=== PATIENT | male | born 1955 | race Caucasian/White ===

== ENCOUNTER 2017-10-10 20:20 | Emergency (ER) | payer MEDICAID ==
[2017-10-10 20:55] VITALS: BP 160/80
[2017-10-10] MEDS ORDERED: Ketorolac 60 MG/2 ML SDV IM ONE (21:25)
--- NOTE | 2017-10-10 21:33 | EDM.PDOC ---
ED HPI GENERAL MEDICAL PROBLEM - General Chief Complaint: Respiratory Problem Stated Complaint: FELL OFF TRACTOR Time Seen by Provider: 10/10/17 21:20 Source of Information: Reports: Patient, Old Records, RN History Limitations: Reports: No Limitations - History of Present Illness INITIAL COMMENTS - FREE TEXT/NARRATIVE: 61 yo male presents with L rib pain after falling on some stairs and impacted that side of his chest on a tractor. It hurts now to breath or laugh. Injury about 1630h today. No self tx. No SOB. No other injuries. Onset: Today Onset Date: 10/10/17 Onset Time: 16:30 Duration: Hour(s):, Constant Location: Reports: Chest Quality: Reports: Sharp, Stabbing Severity: Moderate Improves with: Reports: Rest Worsens with: Reports: Movement (or deep breathing) Context: Reports: Trauma Associated Symptoms: Reports: No Other Symptoms Treatments [employer]ITER: Reports: Other (see below) (none) left rib Pain Score (Numeric/FACES): 5 - Related Data Allergies Allergy/AdvReac Type Severity Reaction Status Date / Time morphine Allergy Itching Verified 10/10/17 21:00 Home Meds: Home Meds Aspirin [Adult Low Dose Aspirin EC] 81 mg PO DAILY 07/18/13 [History] Cyanocobalamin (Vitamin B-12) [Vitamin B-12] 1,000 mcg PO DAILY 07/18/13 [ History] Lisinopril [Prinivil] 5 mg PO DAILY 07/18/13 [History] Simvastatin [Zocor] 40 mg PO BEDTIME 07/18/13 [History] glipiZIDE [Glucotrol XL] 10 mg PO BID 07/18/13 [History] metFORMIN HCl [Metformin HCl ER] 1,000 mg PO BID 07/18/13 [History] Sildenafil [Viagra] 50 mg PO ASDIRECTED PRN 04/05/15 [History] Past Medical History Cardiovascular History: Reports: Blood Clots/VTE/DVT, CAD, High Cholesterol, Hypertension, [place], Stents Respiratory History: Reports: Other (See Below) Other Respiratory History: sarcoid- right lung Musculoskeletal History: Reports: Back Pain, Chronic Endocrine/Metabolic History: Reports: Diabetes, Type II Hematologic History: Reports: B12 Deficiency Oncologic (Cancer) History: Reports: Basal Cell Carcinoma Dermatologic History: Reports: Other (See Below) Other Dermatologic History: lumps left face and arm - Past Surgical History HEENT Surgical History: Reports: Other (See Below) Other HEENT Surgeries/Procedures: parotiod gland surgery Cardiovascular Surgical History: Reports: Coronary Artery Stent Respiratory Surgical History: Reports: Lung Biopsies Musculoskeletal Surgical History: Reports: Arthroscopic Knee Social & Family History - Tobacco Use Smoking Status *Q: Never Smoker - Caffeine Use Caffeine Use: Reports: Coffee - Recreational Drug Use Recreational Drug Use: No ED ROS GENERAL - Review of Systems Review Of Systems: See Below Constitutional: Reports: No Symptoms HEENT: Reports: No Symptoms Respiratory: Reports: Pleuritic Chest Pain Cardiovascular: Reports: No Symptoms GI/Abdominal: Reports: No Symptoms : Reports: No Symptoms Musculoskeletal: Reports: Other (chest wall pain on left.) Skin: Reports: No Symptoms Neurological: Reports: No Symptoms ED EXAM, GENERAL - Physical Exam Exam: See Below Exam Limited By: No Limitations General Appearance: Alert, WD/WN, No Apparent Distress Eye Exam: Bilateral Eye: Normal Inspection Ears: Normal External Exam, Normal Canal, Hearing Grossly Normal Ear Exam: Bilateral Ear: Auricle Normal, Canal Normal Nose: Normal Inspection, Normal Mucosa, No Blood Throat/Mouth: Normal Inspection, Normal Lips, Normal Oropharynx, Normal Voice, No Airway Compromise Head: Atraumatic, Normocephalic Neck: Normal Inspection, Supple, Non-Tender Respiratory/Chest: No Respiratory Distress, Lungs Clear, Normal Breath Sounds, No Accessory Muscle Use, Other (L chest wall tender without crepitus.). No: Chest Non-Tender Cardiovascular: Regular Rate, Rhythm GI/Abdominal: Normal Bowel Sounds, Soft, Non-Tender, No Distention Back Exam: Normal Inspection. No: CVA Tenderness (R), CVA Tenderness (L) Extremities: Normal Inspection, Normal Range of Motion, Non-Tender, No Pedal Edema Neurological: Alert, Oriented, CN II-XII Intact, Normal Cognition, No Motor/ Sensory Deficits Psychiatric: Normal Affect, Normal Mood Skin Exam: Warm, Dry, Intact, Normal Color, No Rash Course - Vital Signs Last Recorded V/S: Last Vital Signs Temp 36.6 C 10/10/17 21:10 Pulse 104 H 10/10/17 21:10 Resp 18 10/10/17 21:10 BP 160/80 H 10/10/17 21:10 Pulse Ox 98 10/10/17 21:10 - Orders/Labs/Meds Orders: Active Orders 24 hr Category Date Time Status Chest 2V [CR] Stat Exams 10/10/17 21:25 Ordered Meds: Medications Discontinued Medications Generic Name Dose Route Start Last Admin Trade Name Ifrah PRN Reason Stop Dose Admin Ketorolac Tromethamine 60 mg 10/10/17 21:25 10/10/17 21:30 Toradol IM 10/10/17 21:26 60 mg ONETIME ONE Administration - Radiology Interpretation Free Text/Narrative:: CXR-At least 2 ribs fx's on left. Departure - Departure Time of Disposition: 21:55 Disposition: Home, Self-Care 01 Condition: Fair Clinical Impression: Ribs, multiple fractures Qualifiers: Encounter type: initial encounter Fracture type: closed Laterality: left Qualified Code(s): S22.42XA - Multiple fractures of ribs, left side, initial encounter for closed fracture - Discharge Information Referrals: Reji Ahmadi MD [Primary Care Provider] - Forms: ED Department Discharge - My Orders Last 24 Hours: My Active Orders 10/10/17 21:25 Chest 2V [CR] Stat - Assessment/Plan Last 24 Hours: My Active Orders 10/10/17 21:25 Chest 2V [CR] Stat
--- NOTE | 2017-10-11 08:57 | CR ---
CHEST: 2 view CLINICAL HISTORY:Fall, chest pain COMPARISON:CT 05/09/2017 FINDINGS: There is a slightly displaced fracture of the left seventh rib.. There is no pleural effus ion or pneumothorax. There are some scattered faint nodularity which is seen on prior CTs of the ches t and is likely related to patient's history of sarcoidosis IMPRESSION: Slightly displaced left seventh rib fracture No acute cardiopulmonary process Faint scattered nodularity has been described on multiple prior CTs
== END 2017-10-10 22:02 | disposition home or self-care (01) ==
LOC: JP.ED 20:20
DX: S22.42XA Multiple fractures of ribs, left side, initial encounter for closed fracture (principal); E78.00 Pure hypercholesterolemia, unspecified; I10 Essential (primary) hypertension; I25.2 Old myocardial infarction; E11.9 Type 2 diabetes mellitus without complications; Z88.5 Allergy status to narcotic agent; Z79.82 Long term (current) use of aspirin; Z79.899 Other long term (current) drug therapy; W10.9XXA Fall (on) (from) unspecified stairs and steps, initial encounter; Y92.818 Other transport vehicle as the place of occurrence of the external cause; Z79.84 Long term (current) use of oral hypoglycemic drugs
CPT/HCPCS: 71046; 96372; 99284; J1885; 99283

== ENCOUNTER 2019-06-14 09:20 | Emergency (ER) | payer MEDICAID ==
--- NOTE | 2019-06-14 09:30 | EDM.PDOC ---
ED HPI GENERAL MEDICAL PROBLEM - General Chief Complaint: Lower Extremity Injury/Pain Stated Complaint: R FOOT SORE-ON THE 4TH TOE Time Seen by Provider: 06/14/19 09:28 Source of Information: Reports: Patient History Limitations: Reports: No Limitations - History of Present Illness INITIAL COMMENTS - FREE TEXT/NARRATIVE: 63 years old male patient presented to the ER for chronic right fourth toe diabetic ulcer. Patient has a follow-up with his boiler testing technician Dr. Bellamy tomorrow. He saw him before and he wasn't antibiotic for 48 days. Finished 1 week ago. Patient was also seen at my clinic for this. His boiler testing technician recommended amputation however my clinic advised him not to do so. Patient is here today for dressing change of his toe and reevaluation of his toe. Stated it 's slightly worse today. Denies any fever. Denies any redness. Denies any new trauma or injury. - Related Data Allergies Allergy/AdvReac Type Severity Reaction Status Date / Time morphine Allergy Itching Verified 06/14/19 09:36 Home Meds: Home Meds Aspirin [Adult Low Dose Aspirin EC] 81 mg PO DAILY 07/18/13 [History] Cyanocobalamin (Vitamin B-12) [Vitamin B-12] 1,000 mcg PO DAILY 07/18/13 [ History] Simvastatin [Zocor] 40 mg PO BEDTIME 07/18/13 [History] glipiZIDE [Glucotrol XL] 10 mg PO BID 07/18/13 [History] lisinopriL [Prinivil] 5 mg PO DAILY 07/18/13 [History] metFORMIN HCl [Metformin HCl ER] 1,000 mg PO BID 07/18/13 [History] Sildenafil [Viagra] 50 mg PO ASDIRECTED PRN 04/05/15 [History] Past Medical History Cardiovascular History: Reports: Blood Clots/VTE/DVT, CAD, High Cholesterol, Hypertension, [place], Stents Respiratory History: Reports: Other (See Below) Other Respiratory History: sarcoid- right lung Musculoskeletal History: Reports: Back Pain, Chronic Endocrine/Metabolic History: Reports: Diabetes, Type II Hematologic History: Reports: B12 Deficiency Oncologic (Cancer) History: Reports: Basal Cell Carcinoma Dermatologic History: Reports: Other (See Below) Other Dermatologic History: lumps left face and arm - Past Surgical History HEENT Surgical History: Reports: Other (See Below) Other HEENT Surgeries/Procedures: parotiod gland surgery Cardiovascular Surgical History: Reports: Coronary Artery Stent Respiratory Surgical History: Reports: Lung Biopsies Musculoskeletal Surgical History: Reports: Arthroscopic Knee Social & Family History - Caffeine Use Caffeine Use: Reports: Coffee Review of Systems - Review of Systems Review Of Systems: Comprehensive ROS is negative, except as noted in HPI. ED EXAM, GENERAL - Physical Exam Exam: See Below Exam Limited By: No Limitations General Appearance: Alert, WD/WN, No Apparent Distress Ears: Normal External Exam, Normal Canal, Hearing Grossly Normal, Normal TMs Ear Exam: Bilateral Ear: Auricle Normal, Canal Normal, TM normal Nose: Normal Inspection, Normal Mucosa, No Blood Throat/Mouth: Normal Inspection, Normal Lips, Normal Teeth, Normal Gums, Normal Oropharynx, Normal Voice, No Airway Compromise Head: Atraumatic, Normocephalic Neck: Normal Inspection, Supple, Non-Tender, Full Range of Motion Respiratory/Chest: No Respiratory Distress, Lungs Clear, Normal Breath Sounds, No Accessory Muscle Use, Chest Non-Tender Cardiovascular: Normal Peripheral Pulses, Regular Rate, Rhythm, No Edema, No Gallop, No JVD, No Murmur, No Rub GI/Abdominal: Normal Bowel Sounds, Soft, Non-Tender, No Organomegaly, No Distention, No Abnormal Bruit, No Mass (Male) Exam: Circumcised Back Exam: Normal Inspection, Full Range of Motion, NT Extremities: Normal Inspection, Normal Range of Motion, Non-Tender, No Pedal Edema, Normal Capillary Refill, Other (Chronic ulcer of the lateral side of the right fourth toe. No erythema or swelling or tenderness. CMS intact. Minimal discharge) Neurological: Alert, Oriented, CN II-XII Intact, Normal Cognition, Normal Gait, Normal Reflexes, No Motor/Sensory Deficits Psychiatric: Normal Affect, Normal Mood Skin Exam: Warm, Dry, Intact, Normal Color, No Rash Lymphatic: No Adenopathy Course - Vital Signs Last Recorded V/S: Last Vital Signs Temp 35.9 C L 06/14/19 09:28 Pulse 80 06/14/19 09:28 Resp 18 06/14/19 09:28 BP 145/86 H 06/14/19 09:28 Pulse Ox 98 06/14/19 09:28 - Orders/Labs/Meds Orders: Active Orders 24 hr Category Date Time Status cefTRIAXone [Rocephin] Med 06/14/19 09:42 Once 1 gm IM ONETIME ONE Medication Orders Ceftriaxone Sodium (Rocephin) 1 gm IM ONETIME ONE Stop: 06/14/19 09:43 Meds: Medications Generic Name Dose Route Start Last Admin Trade Name Ifrah PRN Reason Stop Dose Admin Ceftriaxone Sodium 1 gm 06/14/19 09:42 Rocephin IM 06/14/19 09:43 ONETIME ONE - Re-Assessments/Exams Free Text/Narrative Re-Assessment/Exam: 06/14/19 09:48 Patient was seen and examined shortly after arrival. Stable. Given 1 g IM Rocephin and dressing changed and advised to keep his appointment with his boiler testing technician Dr. Bellamy tomorrow. Advised to come back for any concern or any worsening symptom. Patient agrees with the plan. Stable for discharge. Departure - Departure Time of Disposition: 09:42 Disposition: Home, Self-Care 01 Condition: Good Clinical Impression: Diabetic toe ulcer - Discharge Information Instructions: Diabetes Mellitus and Foot Care Referrals: PCP,None [Primary Care Provider] - Forms: ED Department Discharge Additional Instructions: Keep your appointment with boiler testing technician Dr. Bellamy tomorrow Come back for any concern or any worsening symptom Sepsis Event Note - Focused Exam Vital Signs: Vital Signs Temp Pulse Resp BP Pulse Ox 06/14/19 09:28 35.9 C L 80 18 145/86 H 98 Date Exam was Performed: 06/14/19 Time Exam was Performed: 09:42 - My Orders Last 24 Hours: My Active Orders 06/14/19 09:42 cefTRIAXone [Rocephin] 1 gm IM ONETIME ONE - Assessment/Plan Last 24 Hours: My Active Orders 06/14/19 09:42 cefTRIAXone [Rocephin] 1 gm IM ONETIME ONE Plan: Keep your appointment with boiler testing technician Dr. Bellamy tomorrow Come back for any concern or any worsening symptom
[2019-06-14 09:34] VITALS: BP 145/86; PULSE 80
[2019-06-14] MEDS ORDERED: cefTRIAXone 1 GM Vial IM ONE (09:42)
== END 2019-06-14 10:18 | disposition home or self-care (01) ==
LOC: JP.ED 09:20
DX: E11.621 Type 2 diabetes mellitus with foot ulcer (principal); L97.519 Non-pressure chronic ulcer of other part of right foot with unspecified severity; I10 Essential (primary) hypertension; I25.10 Atherosclerotic heart disease of native coronary artery without angina pectoris; I25.2 Old myocardial infarction; Z79.84 Long term (current) use of oral hypoglycemic drugs; Z79.82 Long term (current) use of aspirin; Z79.899 Other long term (current) drug therapy; Z85.828 Personal history of other malignant neoplasm of skin; Z88.5 Allergy status to narcotic agent
CPT/HCPCS: 96372; 99282; J0696; J2001

== ENCOUNTER 2019-08-15 20:16 | Emergency (ER) | payer MEDICAID ==
[2019-08-15 21:24] VITALS: BP 115/64; PULSE 113
--- NOTE | 2019-08-15 21:54 | EDM.PDOC ---
ED HPI GENERAL MEDICAL PROBLEM - General Chief Complaint: Fever Stated Complaint: RT FOOT, LEFT RIB PAIN Time Seen by Provider: 08/15/19 21:10 Source of Information: Reports: Patient, Family History Limitations: Reports: No Limitations - History of Present Illness INITIAL COMMENTS - FREE TEXT/NARRATIVE: 63-year-old diabetic, has peripheral neuropathy and a history of a toe amputation on the right foot within the last year. Over the past several days he has had erythema and warmth of the right foot and increased tenderness. He also has some discomfort on the anterior aspect of the left chest wall after reaching forward 2 days ago. He is also had some intermittent low-grade fevers and generalized malaise. He admits he has not taken his medications consistently and is medically noncompliant. Podiatry fitted him with a boot last week but he does not want to wear it because it does not fit right. Onset: Gradual (Worsening redness and pain in his foot for the past 3 days) Associated Symptoms: Reports: Fever/Chills, Malaise, Other (Left anterior chest wall pain). Denies: Cough, Nausea/Vomiting, Shortness of Breath, Weakness - Related Data Allergies Allergy/AdvReac Type Severity Reaction Status Date / Time morphine Allergy Itching Verified 08/15/19 20:44 Home Meds: Home Meds Aspirin [Adult Low Dose Aspirin EC] 81 mg PO DAILY 07/18/13 [History] Cyanocobalamin (Vitamin B-12) [Vitamin B-12] 1,000 mcg PO DAILY 07/18/13 [ History] Simvastatin [Zocor] 40 mg PO BEDTIME 07/18/13 [History] glipiZIDE [Glucotrol XL] 10 mg PO BID 07/18/13 [History] lisinopriL [Prinivil] 10 mg PO DAILY 07/18/13 [History] metFORMIN HCl [Metformin HCl ER] 1,000 mg PO BID 07/18/13 [History] SitaGLIPtin [Januvia] 100 mg PO DAILY 06/14/19 [History] Past Medical History Cardiovascular History: Reports: Blood Clots/VTE/DVT, CAD, High Cholesterol, Hypertension, [place], Stents Respiratory History: Reports: Other (See Below) Other Respiratory History: sarcoid- right lung Musculoskeletal History: Reports: Back Pain, Chronic Endocrine/Metabolic History: Reports: Diabetes, Type II Hematologic History: Reports: B12 Deficiency Oncologic (Cancer) History: Reports: Basal Cell Carcinoma Dermatologic History: Reports: Other (See Below) Other Dermatologic History: lumps left face and arm - Past Surgical History HEENT Surgical History: Reports: Other (See Below) Other HEENT Surgeries/Procedures: parotiod gland surgery Cardiovascular Surgical History: Reports: Coronary Artery Stent Respiratory Surgical History: Reports: Lung Biopsies Musculoskeletal Surgical History: Reports: Arthroscopic Knee, Other (See Below) Other Musculoskeletal Surgeries/Procedures:: right toe amputation Social & Family History - Tobacco Use Smoking Status *Q: Never Smoker - Caffeine Use Caffeine Use: Reports: Coffee ED ROS GENERAL - Review of Systems Review Of Systems: See Below Constitutional: Reports: Fever, Chills, Malaise HEENT: Reports: No Symptoms Respiratory: Reports: Pleuritic Chest Pain. Denies: Shortness of Breath Cardiovascular: Reports: Chest Pain. Denies: Palpitations GI/Abdominal: Denies: Abdominal Pain, Nausea, Vomiting : Reports: No Symptoms Musculoskeletal: Reports: Foot Pain (Right foot pain) Skin: Reports: Erythema (Erythema has developed on the top and medial aspect of the right foot) Neurological: Reports: Paresthesia ED EXAM, GENERAL - Physical Exam Exam: See Below (Significant peripheral neuropathy) Exam Limited By: No Limitations General Appearance: Alert, No Apparent Distress Eye Exam: Bilateral Eye: Normal Inspection Respiratory/Chest: No Respiratory Distress, Lungs Clear, Other (I can reproduce some chest wall tenderness to palpation over the anterior aspect of the costochondral junction on the left side near the inferior aspect of the rib cage. There is no crepitus or bruising.) Cardiovascular: Regular Rate, Rhythm GI/Abdominal: Normal Bowel Sounds, Soft, Non-Tender Extremities: Other (The right foot has a surgically removed fourth toe, the incision looks excellent. There is erythema and warmth extending from the base of the toes over the top of the foot around to the medial aspect of the foot. No open wounds or ischemic discoloration.) Course - Vital Signs Last Recorded V/S: Last Vital Signs Temp 100.9 F H 08/15/19 20:59 Pulse 113 H 08/15/19 21:23 Resp 14 08/15/19 20:59 BP 115/64 08/15/19 21:23 Pulse Ox 97 08/15/19 21:23 - Orders/Labs/Meds Orders: Active Orders 24 hr Category Date Time Status Chest 2V [CR] Routine Exams 08/15/19 21:20 Taken - Re-Assessments/Exams Free Text/Narrative Re-Assessment/Exam: 08/15/19 23:01 A 2 view chest x-ray was obtained and showed irregularities of the seventh and eighth rib which could be chronic. No infiltrates. Patient will be started on 875 mg of Augmentin twice daily for a full 10 days and I recommended him rechecking with podiatry in 2 to 3 days. He can return sooner if worsening despite treatment. Departure - Departure Time of Disposition: 22:43 Disposition: Home, Self-Care 01 Clinical Impression: Cellulitis of right foot, Anterior chest wall pain - Discharge Information Instructions: Cellulitis, Adult Referrals: Reji Ahmadi MD [Primary Care Provider] - Forms: ED Department Discharge Care Plan Goals: Continue your current medications as prescribed, and take Augmentin for a full 10 days. Consider rechecking with Dr. Sorto on Saturday, especially if you do not feel you are improving satisfactorily. Sepsis Event Note - Evaluation Sepsis Screening Result: Possible Severe Sepsis Risk - Focused Exam Vital Signs: Vital Signs Temp Pulse Resp BP Pulse Ox 08/15/19 21:23 113 H 115/64 97 08/15/19 20:59 100.9 F H 108 H 14 96/46 L 97 Date Exam was Performed: 08/15/19 Time Exam was Performed: 22:58 - My Orders Last 24 Hours: My Active Orders 08/15/19 21:20 Chest 2V [CR] Routine - Assessment/Plan Last 24 Hours: My Active Orders 08/15/19 21:20 Chest 2V [CR] Routine
--- NOTE | 2019-08-17 10:21 | CR ---
CHEST: 2 view CLINICAL HISTORY:Dyspnea COMPARISON:2018 FINDINGS: The heart size, pulmonary vascularity and hilar structures are normal. No infiltrate effusion or pneumothorax is seen. 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 IMPRESSION: No acute cardiopulmonary process.
== END 2019-08-15 22:43 | disposition home or self-care (01) ==
LOC: JP.ED 20:16
DX: L03.115 Cellulitis of right lower limb (principal); R07.89 Other chest pain; I10 Essential (primary) hypertension; E78.00 Pure hypercholesterolemia, unspecified; I25.10 Atherosclerotic heart disease of native coronary artery without angina pectoris; E11.42 Type 2 diabetes mellitus with diabetic polyneuropathy; I25.2 Old myocardial infarction; Z88.5 Allergy status to narcotic agent; Z79.82 Long term (current) use of aspirin; Z79.899 Other long term (current) drug therapy; Z79.84 Long term (current) use of oral hypoglycemic drugs; Z89.421 Acquired absence of other right toe(s); Z95.5 Presence of coronary angioplasty implant and graft
CPT/HCPCS: 71046; 71046-26; 99284-25

== ENCOUNTER 2020-05-19 09:50 | Emergency (ER) | payer MEDICAID ==
--- NOTE | 2020-05-19 10:38 | EDM.PDOC ---
ED HPI GENERAL MEDICAL PROBLEM - General Chief Complaint: Neurological Problem Stated Complaint: FELL DOWN STAIRS SAT, KEEPS FALLING Time Seen by Provider: 05/19/20 10:15 Source of Information: Reports: Patient, Family, Old Records, RN History Limitations: Reports: No Limitations - History of Present Illness INITIAL COMMENTS - FREE TEXT/NARRATIVE: 64 yo male with diabetic neuropathy was drinking on Saturday and fell down some stairs. Since then he has been falling more and seems forgetful. Has some pain to the L groin area with leg movement. Ribs hurt more bilaterally. The daughter became aware of what has been going on today and called Dr. Ahmadi who directed them to come to the ER. Denies BERTRAND or vomiting. Onset: Sudden Onset Date: 05/14/20 Duration: Day(s):, Waxing/Waning Location: Reports: Head, Chest, Pelvis Quality: Reports: Ache Severity: Mild Improves with: Reports: None Worsens with: Reports: Movement (L pelvis worse with active leg movement) Context: Reports: Trauma Associated Symptoms: Reports: Other (losing track of time). Denies: Headaches Treatments PURCHASING SUPERVISOR: Reports: Other (see below) (none) - Related Data Allergies Allergy/AdvReac Type Severity Reaction Status Date / Time morphine Allergy Itching Verified 05/19/20 10:10 Home Meds: Home Meds Aspirin [Adult Low Dose Aspirin EC] 81 mg PO DAILY 07/18/13 [History] Cyanocobalamin (Vitamin B-12) [Vitamin B-12] 1,000 mcg PO DAILY 07/18/13 [History] Simvastatin [Zocor] 40 mg PO BEDTIME 07/18/13 [History] glipiZIDE [Glucotrol XL] 10 mg PO BID 07/18/13 [History] lisinopriL [Prinivil] 10 mg PO DAILY 07/18/13 [History] metFORMIN HCl [Metformin HCl ER] 1,000 mg PO BID 07/18/13 [History] SitaGLIPtin [Januvia] 100 mg PO DAILY 06/14/19 [History] Gabapentin [Neurontin] 300 mg PO BID 05/19/20 [History] Past Medical History HEENT History: Reports: Impaired Vision Cardiovascular History: Reports: Blood Clots/VTE/DVT, CAD, High Cholesterol, Hypertension, ND, Stents Respiratory History: Reports: Other (See Below) Other Respiratory History: sarcoid- right lung Musculoskeletal History: Reports: Back Pain, Chronic Endocrine/Metabolic History: Reports: Diabetes, Type II, Obesity/BMI 30+ Hematologic History: Reports: B12 Deficiency Oncologic (Cancer) History: Reports: Basal Cell Carcinoma Dermatologic History: Reports: Other (See Below) Other Dermatologic History: lumps left face and arm - Infectious Disease History Infectious Disease History: Reports: Chicken Pox, Mumps - Past Surgical History Head Surgeries/Procedures: Reports: None HEENT Surgical History: Reports: Other (See Below) Other HEENT Surgeries/Procedures: parotiod gland surgery Cardiovascular Surgical History: Reports: Coronary Artery Stent Respiratory Surgical History: Reports: Lung Biopsies Endocrine Surgical History: Reports: None Musculoskeletal Surgical History: Reports: Arthroscopic Knee, Other (See Below) Other Musculoskeletal Surgeries/Procedures:: right toe amputation , tip of right middle finger amputated Oncologic Surgical History: Reports: None Social & Family History - Tobacco Use Tobacco Use Status *Q: Never Tobacco User Second Hand Smoke Exposure: No - Caffeine Use Caffeine Use: Reports: Coffee - Recreational Drug Use Recreational Drug Use: No ED ROS GENERAL - Review of Systems Review Of Systems: See Below Constitutional: Reports: No Symptoms HEENT: Reports: No Symptoms Respiratory: Reports: Pleuritic Chest Pain (at times with deep breathing). Denies: Shortness of Breath, Cough, Sputum, Hemoptysis Cardiovascular: Reports: No Symptoms Endocrine: Reports: No Symptoms GI/Abdominal: Reports: No Symptoms : Reports: No Symptoms Musculoskeletal: Reports: Leg Pain (R and L at times) Skin: Reports: Bruising Neurological: Reports: Confusion (mild at times), Difficulty Walking (falling more often). Denies: Headache, Seizure, Trouble Speaking ED EXAM, NEURO - Physical Exam Exam: See Below Exam Limited By: No Limitations General Appearance: Alert, WD/WN, No Apparent Distress Eye Exam: Bilateral Eye: Normal Inspection, PERRL Ears: Normal External Exam, Normal Canal, Hearing Grossly Normal, Normal TMs Nose: Normal Inspection, No Blood Throat/Mouth: Normal Inspection, Normal Lips, Normal Oropharynx, Normal Voice, No Airway Compromise Head Exam: Normocephalic. No: Atraumatic (some scalp tenderness) Neck: Normal Inspection Respiratory/Chest: No Respiratory Distress, Lungs Clear, Normal Breath Sounds, No Accessory Muscle Use. No: Chest Non-Tender (ribs tender bilat.) Cardiovascular: Regular Rate, Rhythm, No Edema GI/Abdominal: Normal Bowel Sounds, Soft, No Distention. No: Non-Tender (mild RUQ tenderness), Distended Neurological: Alert, Normal Mood/Affect, CN II-XII Intact, No Motor/Sensory Deficits, Oriented x 3 Extremities: Normal Inspection, Normal Range of Motion, Non-Tender, No Pedal Edema Psychiatric: Normal Affect, Normal Mood Skin Exam: Warm, Dry, Intact, No Rash, Ecchymosis (scattered) Course - Vital Signs Text/Narrative:: Discussed case with [facility], wants to see him for f/u in [place] in 2 weeks. Last Recorded V/S: Last Vital Signs Temp 36.7 C 05/19/20 10:13 Pulse 64 05/19/20 12:46 Resp 19 05/19/20 12:46 BP 153/77 H 05/19/20 12:46 Pulse Ox 98 05/19/20 12:46 - Orders/Labs/Meds Labs: Laboratory Tests 05/19/20 05/19/20 05/19/20 Range/Units 10:39 10:39 10:46 WBC 5.6 (4.5-11.0) K/uL RBC 4.64 (4.30-5.90) M/uL Hgb 13.3 (12.0-15.0) g/dL Hct 39.9 L (40.0-54.0) % MCV 86 (80-98) fL MCH 29 (27-31) pg MCHC 33 (32-36) % Plt Count 171 (150-400) K/uL Sodium 137 L (140-148) mmol/L Potassium 5.0 (3.6-5.2) mmol/L Chloride 102 (100-108) mmol/L Carbon Dioxide 25 (21-32) mmol/L Anion Gap 15.0 H (5.0-14.0) mmol/L BUN 18 (7-18) mg/dL Creatinine 0.9 (0.8-1.3) mg/dL Est Cr Clr Drug Dosing 88.31 mL/min Estimated GFR (MDRD) > 60 (>60) Glucose 239 H (74-106) mg/dL Calcium 9.0 (8.5-10.1) mg/dL Troponin I < 0.017 (0.000-0.056) ng/mL Urine Color Yellow (YELLOW) Urine Appearance Clear (CLEAR) Urine pH 5.5 (5.0-8.0) Ur Specific Only >= 1.030 (1.008-1.030) Urine Protein Trace H (NEGATIVE) mg/dL Urine Glucose (UA) 500 H (NEGATIVE) mg/dL Urine Ketones Negative (NEGATIVE) mg/dL Urine Occult Blood Negative (NEGATIVE) Urine Nitrite Negative (NEGATIVE) Urine Bilirubin Negative (NEGATIVE) Urine Urobilinogen 0.2 (0.2-1.0) EU/dL Ur Leukocyte Esterase Negative (NEGATIVE) Urine RBC 0-5 (0-5) Urine WBC Not seen (0-5) Ur Epithelial Cells Not seen Amorphous Sediment Rare Urine Bacteria Not seen Urine Mucus Rare Meds: Medications Discontinued Medications Generic Name Dose Route Start Last Admin Trade Name Freq PRN Reason Stop Dose Admin Acetaminophen 1,000 mg 05/19/20 11:14 05/19/20 11:39 Tylenol Extra Strength PO 05/19/20 11:15 1,000 mg ONETIME ONE Administration Sodium Chloride 1,000 mls @ 1,000 mls/hr 05/19/20 11:14 05/19/20 11:40 Normal Saline IV 05/19/20 12:13 1,000 mls/hr .BOLUS ONE Administration - Radiology Interpretation Free Text/Narrative:: CXR-neg Pelvis X-ray-neg Head CT scan-small R frontal subdural, bilateral frontal hygromas from ? old subdurals. Departure - Departure Time of Disposition: 14:30 Disposition: Home, Self-Care 01 Condition: Fair Clinical Impression: Mild dehydration, Frequent falls Concussion Qualifiers: Encounter type: initial encounter Loss of consciousness presence/duration: without LOC Qualified Code(s): S06.0X0A - Concussion without loss of consciousness, initial encounter - Discharge Information Referrals: Reji Ahmadi MD [Primary Care Provider] - Forms: ED Department Discharge Additional Instructions: F/U with the [facility] neurosurgeon, Dr. Rob, in 2 weeks. Use acetaminophen up to 1000 mg every 6 hrs for pain relief. Use your walker to help reduce your risk of falling. Return as needed or see your family doctor. Sepsis Event Note (ED) - Evaluation Sepsis Screening Result: No Definite Risk - Focused Exam Vital Signs: Vital Signs Temp Pulse Resp BP Pulse Ox 05/19/20 12:46 64 19 153/77 H 98 05/19/20 10:13 36.7 C 72 14 169/80 H 98 05/19/20 10:12 36.7 C 72 14 169/80 H 98
[2020-05-19] MEDS ORDERED: Sodium Chloride 0.9% 1,000 ML IV ONE (11:14)
[2020-05-19] MEDS ORDERED: Acetaminophen 500 MG Tab PO ONE (11:14)
--- NOTE | 2020-05-19 11:26 | CT ---
Head wo Cont CLINICAL HISTORY: Fall, syncope COMPARISON: None TECHNIQUE: Transverse scans were obtained from the base of the skull through the vertex without IV contrast on a multislice, multidetector CT scanner. Auto dosage reduction and iterative reconstruction techniques employed. FINDINGS: There is an extra-axial collection of blood over the right frontal lobe. This felt to represent an acute subdural hemorrhage. There is no significant mass effect. There are prominent axial spaces bilaterally over the frontal parietal regions. The sulci and ventricles are not particularly prominent. This is felt to represent bilateral subdural hygromas. The density of the CSF is slightly higher than within the ventricles there is no shift in the midline. IMPRESSION: Acute right frontal convexity subdural hematoma superimposed over small bilateral subdural hygromas. There is no significant focal mass effect or shift of the midline
[2020-05-19 12:55] VITALS: BP 153/77; PULSE 64
--- NOTE | 2020-05-19 13:31 | CR ---
CHEST: 2 view CLINICAL HISTORY:Fall, bilateral rib pain COMPARISON:08/15/2019 FINDINGS: There is less than optimal inspiration which exaggerates the heart size and pulmonary vascularity. No infiltrates are seen. There is no pleural effusion. There are 2 left rib fractures seen in 2020. Impression: Less than optimal inspiration Old left seventh and eighth rib fractures. No acute fractures seen though rib detail is limited on a chest x-ray Pelvis 1V or 2V CLINICAL HISTORY: Fall FINDINGS: There is mild acetabular spurring bilaterally. No fracture or osseous lesion is seen. There is a cam deformity in the lateral periarticular region of the left hip. IMPRESSION: Cam type deformity. This can custom femoral acetabular impingement No fracture
== END 2020-05-19 15:04 | disposition home or self-care (01) ==
LOC: JP.ED 09:50
DX: S06.0X0A Concussion without loss of consciousness, initial encounter (principal); E86.0 Dehydration; I25.10 Atherosclerotic heart disease of native coronary artery without angina pectoris; E78.00 Pure hypercholesterolemia, unspecified; I10 Essential (primary) hypertension; I25.2 Old myocardial infarction; E11.9 Type 2 diabetes mellitus without complications; E66.9 Obesity, unspecified; Z68.34 Body mass index [BMI] 34.0-34.9, adult; Z91.81 History of falling; Z88.5 Allergy status to narcotic agent; Z79.82 Long term (current) use of aspirin; Z79.84 Long term (current) use of oral hypoglycemic drugs; W10.9XXA Fall (on) (from) unspecified stairs and steps, initial encounter
CPT/HCPCS: 36415; 70450; 71046; 72170; 80048; 81001; 84484; 85027; 99284; A9270; J7030; 99283

== ENCOUNTER → 2020-06-21 | Day surgery (SDC) | payer MEDICAID ==
[~2020-06-21] MED LIST: Bupivacaine 0.5% 30 ML SDV ONE; Lactated Ringers 1,000 ML IV SCH; Midazolam 1 MG/ML 2 ML SDV ONE; Propofol 200 MG/20 ML SDV ONE; fentaNYL 100 MCG/2 ML SDV ONE
[2020-06-21 11:13] VITALS: BP 156/96; PULSE 75
--- NOTE | 2020-06-21 14:41 | OR ---
DATE OF PROCEDURE: 06/21/2020 SURGEON: Alphonse Wray DPM OFFICE MACHINE SERVICE SUPERVISOR: None. PREOPERATIVE DIAGNOSIS: Osteomyelitis, left 4th toe. POSTOPERATIVE DIAGNOSIS: Osteomyelitis, left 4th toe. PROCEDURE: Amputation of left 4th toe. ANESTHESIA: Local with IV sedation. HEMOSTASIS: Obtained with an ankle tourniquet on the left ankle at 250 mmHg. ESTIMATED BLOOD LOSS: 5 mL. MATERIALS: None. INJECTABLES: A total of 10 mL of Marcaine 0.5% plain was injected in the 3rd and 4th intermetatarsal spaces to block the left 4th toe prior to prep. PATHOLOGY: Left 4th toe was sent and also aerobic and anaerobic cultures were taken. CONDITION: Stable. INDICATIONS FOR SURGERY: Nonhealing ulcer that probed to bone, left 4th toe in diabetic patient. PROCEDURE IN DETAIL: The patient was brought to the operating room, placed on the operating table in supine position. Following IV sedation, anesthesia was obtained with a total of 10 mL of Marcaine 0.5% plain. The left foot was then scrubbed, prepped, and draped in the usual aseptic manner and raised to 60 degrees for hemostasis and exsanguinated using Esmarch bandage. Tourniquet was inflated. Foot was lowered to table. Skin incision was made in a semi-elliptical incision around the base of the left 4th toe straight down to bone and then the towel clamp was attached to the distal aspect of the left 4th toe. The left 4th toe was then disarticulated with a 15 blade at the 4th metatarsophalangeal joint having resected the extensor flexor tendons and the medial lateral collateral ligaments. We then examined the tissue at the amputation site, found it to be healthy with no purulence, no malodor, no signs of infection, and the left 4th metatarsal head was healthy with healthy hard bone. We then, on the back table, made an incision into the ulceration that was on the left 4th toe that had just been removed and took deep cultures from with inside the wound, aerobic and anaerobic. We then flushed out the incision at the amputation site of the left 4th toe with copious amounts of sterile saline and then closed the skin with 3-0 nylon simple interrupted configuration and then dressed with Xeroform, 4x4s, Kerlix, and Coban. The patient was returned to recovery room with vital signs stable and vascular status intact to both feet. The patient was told to rest and elevate the left foot. Ambulate with Cam boot with weight on the heel of the left foot only, partial weightbearing with crutches or a walker or knee scooter and to return to clinic for followup in 1 week, at which time, he will be re- evaluated. We did give the patient some pain medication. We also gave him a prescription yesterday for doxycycline 100 mg 1 tablet p.o. q.12 h. x14 days, dispensed #28. We also did put in a consult with Infectious Disease just because the patient has had a history of bad diabetic foot infections, we want to make sure that we have him on the appropriate antibiotics. Alphonse Wray DPM /[id number]
== END ==
LOC: JP.SDS 07:43
PROVIDERS: ATTEND Podiatrist Foot & Ankle Surgery
DX: E11.621 Type 2 diabetes mellitus with foot ulcer (principal); M86.8X7 Other osteomyelitis, ankle and foot; L97.529 Non-pressure chronic ulcer of other part of left foot with unspecified severity; Z01.812 Encounter for preprocedural laboratory examination; Z20.822 Contact with and (suspected) exposure to COVID-19; E11.42 Type 2 diabetes mellitus with diabetic polyneuropathy; E78.5 Hyperlipidemia, unspecified; I25.10 Atherosclerotic heart disease of native coronary artery without angina pectoris; Z79.899 Other long term (current) drug therapy; Z79.4 Long term (current) use of insulin; Z88.5 Allergy status to narcotic agent; I11.0 Hypertensive heart disease with heart failure; I50.9 Heart failure, unspecified
CPT/HCPCS: 28820; 87070; 87075; 87205; 87635; 88305; 88311; J2250; J2704; J3010; J3370; J3490; J7050; J7120; U0002

== ENCOUNTER 2020-08-23 06:16 | Day surgery (SDC) | payer MEDICAID ==
[2020-08-23] MEDS ORDERED: Midazolam 1 MG/ML 2 ML SDV ONE (07:05)
[2020-08-23] MEDS ORDERED: Propofol 200 MG/20 ML SDV ONE (07:05)
[2020-08-23] MEDS ORDERED: fentaNYL 100 MCG/2 ML SDV ONE (07:05)
[2020-08-23] MEDS: Lactated Ringers 1,000 ML IV SCH (07:14)
[2020-08-23] MEDS: ceFAZolin 2 GM in Premix Bag 1 BAG IV ONE (07:27)
[2020-08-23] MEDS: Bupivacaine 0.5% 30 ML SDV NERVRT ONE (07:50)
[2020-08-23 09:18] VITALS: BP 139/68; PULSE 71
--- NOTE | 2020-08-23 12:00 | OR ---
DATE OF PROCEDURE: 08/23/2020 SURGEON: Alphonse Wray DPM MILLER DISTILLERY: None. PREOPERATIVE DIAGNOSIS: Osteomyelitis in the left third toe. POSTOPERATIVE DIAGNOSIS: Osteomyelitis in the left third toe. PROCEDURE: Amputation of left third toe. ANESTHESIA: Local with IV sedation. HEMOSTASIS: Was obtained with a calf tourniquet on left calf 250 mmHg. ESTIMATED BLOOD LOSS: 5 mL. MATERIALS: None. INJECTABLES: A total of 10 mL of Marcaine, 0.5% plain was injected near the base of the left third toe. PATHOLOGY: Left third toe sent. CONDITION: Stable. INDICATIONS FOR SURGERY: Osteomyelitis, left third toe. PROCEDURE IN DETAIL: Patient was brought to the operating room, placed on the operating table in supine position. Following IV sedation, anesthesia was obtained with a total of 10 mL of Marcaine 0.5% plain. The left foot was scrubbed, prepped, and draped in the usual aseptic manner, raised to 60 degrees for hemostasis and tourniquet was inflated. It was not exsanguinated with an Esmarch, the foot was lowered to table. Skin incision was made by a semi-elliptical incision at the base of the left third toe. Incisions were carried straight down to bone. The left third toe was then disarticulated at the third metatarsophalangeal joint with a 15 blade and we resected the extensor and flexor tendons and the medial and lateral collateral ligaments, removed the toe. The incision was then examined, and we found that there was healthy, intact tissue and the head of the third metatarsal was clean, white, and healthy hard bone. Incision was then flushed out with copious amounts of sterile saline and closed with 3-0 nylon in a simple interrupted configuration and dressed with Xeroform, 4x4s, Kerlix, and Coban. The patient was returned to recovery room with vital signs stable and vascular status intact to both feet. The patient was told to rest and elevate the left foot, keep dressings clean, dry, and intact and return to clinic for followup in one week. 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 We explained this to him preoperatively as well as at our last visit. The patient related understanding. Patient right now is finishing a course of doxycycline, which will be done on , but we are going to add another 7 days of doxycycline 100 mg one tab p.o. q.12h x7 days, dispensed #14. Alphonse Wray DPM /[id number]
== END 2020-08-23 10:20 | disposition home or self-care (01) ==
LOC: JP.SDS 06:16
PROVIDERS: ATTEND Podiatrist Foot & Ankle Surgery
DX: M86.172 Other acute osteomyelitis, left ankle and foot (principal); L91.8 Other hypertrophic disorders of the skin; E11.51 Type 2 diabetes mellitus with diabetic peripheral angiopathy without gangrene; I10 Essential (primary) hypertension; E78.5 Hyperlipidemia, unspecified; E11.42 Type 2 diabetes mellitus with diabetic polyneuropathy; I25.9 Chronic ischemic heart disease, unspecified; Z79.84 Long term (current) use of oral hypoglycemic drugs; Z79.899 Other long term (current) drug therapy; Z88.6 Allergy status to analgesic agent; Z98.890 Other specified postprocedural states
CPT/HCPCS: 28820; J0690; J2250; J2704; J3010; J3490; J7120

== ENCOUNTER 2020-11-15 10:39 | Emergency (ER) | payer MEDICAID, MEDICARE ==
--- NOTE | 2020-11-15 11:53 | EDM.PDOC ---
ED HPI GENERAL MEDICAL PROBLEM - General Chief Complaint: General Stated Complaint: REALLY WEAK Time Seen by Provider: 11/15/20 11:45 Source of Information: Reports: Patient, Old Records, RN History Limitations: Reports: No Limitations - History of Present Illness INITIAL COMMENTS - FREE TEXT/NARRATIVE: 65 yo male presents with a fatigue and sweats for 3-4 days. Has mild diarrhea today. Has not been running a fever. Saw Dr. Ahmadi a few days ago for a cough that has improved since then while on Bactrim. No Covid testing was done. He has not had the Covid vaccine. Onset: Gradual Onset Date: 11/11/20 Duration: Day(s):, Getting Worse Location: Reports: Generalized Quality: Reports: Other (pain not reported) Severity: Moderate Improves with: Reports: None Worsens with: Reports: Other (time or exertion) Context: Reports: Other (See HPI) Associated Symptoms: Reports: Cough, Diaphoresis, Other (diarrhea). 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 (see below) (Bactrim) - Related Data Allergies Allergy/AdvReac Type Severity Reaction Status Date / Time morphine Allergy Itching Verified 11/15/20 11:02 Home Meds: Home Meds Cyanocobalamin (Vitamin B-12) [Vitamin B-12] 1,000 mcg PO DAILY 07/18/13 [History] Simvastatin [Zocor] 40 mg PO BEDTIME 07/18/13 [History] glipiZIDE [Glucotrol XL] 10 mg PO BID 07/18/13 [History] lisinopriL [Prinivil] 10 mg PO DAILY 07/18/13 [History] metFORMIN HCl [Metformin HCl ER] 1,000 mg PO BID 07/18/13 [History] Gabapentin [Neurontin] 300 mg PO BID 05/19/20 [History] Acetaminophen [Tylenol Extra Strength] 500 - 1,000 mg PO Q6H PRN 06/20/20 [History] SitaGLIPtin [Januvia] 100 mg PO DAILY 06/20/20 [History] Magnesium 250 mg PO DAILY 06/21/20 [History] Sildenafil Citrate [Viagra] 100 mg PO ASDIRECTED PRN 08/22/20 [History] Aspirin [Low Dose Aspirin EC] 81 mg PO DAILY 08/23/20 [History] Sulfamethoxazole/Trimethoprim [Sulfamethoxazole-Tmp Ds Tablet] 1 tab PO BID 11/15/20 [History] Past Medical History HEENT History: Reports: Impaired Vision Cardiovascular History: Reports: Blood Clots/VTE/DVT, CAD, High Cholesterol, Hypertension, MA, Stents Respiratory History: Reports: Other (See Below) Other Respiratory History: sarcoid- right lung Musculoskeletal History: Reports: Back Pain, Chronic Neurological History: Reports: Other (See Below) Other Neuro History: brain bleed secondary to a fall but pt states it's resolved Endocrine/Metabolic History: Reports: Diabetes, Type II, Obesity/BMI 30+ Hematologic History: Reports: B12 Deficiency Oncologic (Cancer) History: Reports: Basal Cell Carcinoma Dermatologic History: Reports: Other (See Below) Other Dermatologic History: lumps left face and arm; sarcoidosis - Infectious Disease History Infectious Disease History: Reports: Chicken Pox, Mumps - Past Surgical History Head Surgeries/Procedures: Reports: None HEENT Surgical History: Reports: None Other HEENT Surgeries/Procedures: parotiod gland surgery Cardiovascular Surgical History: Reports: Coronary Artery Stent Respiratory Surgical History: Reports: Lung Biopsies Endocrine Surgical History: Reports: None Neurological Surgical History: Reports: None Musculoskeletal Surgical History: Reports: Arthroscopic Knee, Other (See Below) Other Musculoskeletal Surgeries/Procedures:: right toe amputation , tip of right middle finger amputated Oncologic Surgical History: Reports: None Dermatological Surgical History: Reports: Skin Biopsy Social & Family History - Family History Family Medical History: No Pertinent Family History - Tobacco Use Tobacco Use Status *Q: Never Tobacco User - Caffeine Use Caffeine Use: Reports: Coffee - Recreational Drug Use Recreational Drug Use: No ED ROS GENERAL - Review of Systems Review Of Systems: See Below Constitutional: Reports: Malaise, Fatigue, Diaphoresis. Denies: Fever, Chills HEENT: Reports: Rhinitis Respiratory: Reports: Cough. Denies: Shortness of Breath, Wheezing, Pleuritic Chest Pain, Sputum Cardiovascular: Reports: No Symptoms Endocrine: Reports: No Symptoms GI/Abdominal: Reports: Diarrhea. Denies: Nausea, Vomiting : Reports: No Symptoms Musculoskeletal: Reports: No Symptoms Skin: Reports: No Symptoms Neurological: Reports: No Symptoms ED EXAM, GENERAL - Physical Exam Exam: See Below Exam Limited By: No Limitations General Appearance: Alert, WD/WN, Mild Distress Eye Exam: Bilateral Eye: Normal Inspection Ears: Normal External Exam, Normal Canal, Hearing Grossly Normal, Normal TMs Ear Exam: Bilateral Ear: Auricle Normal, Canal Normal, TM normal Nose: Normal Inspection, No Blood Throat/Mouth: Normal Inspection, Normal Lips, Normal Oropharynx, Normal Voice, No Airway Compromise Head: Atraumatic, Normocephalic Neck: Normal Inspection Respiratory/Chest: No Respiratory Distress, Lungs Clear, Normal Breath Sounds, No Accessory Muscle Use Cardiovascular: Regular Rate, Rhythm, No Edema GI/Abdominal: Normal Bowel Sounds, Soft, Non-Tender, No Distention Back Exam: Normal Inspection. No: CVA Tenderness (R), CVA Tenderness (L) Extremities: Normal Inspection, Normal Range of Motion, Non-Tender, No Pedal Edema Neurological: Alert, Oriented, CN II-XII Intact, Normal Cognition, No Motor/Sensory Deficits Psychiatric: Normal Affect, Normal Mood Skin Exam: Warm, Intact, Normal Color, No Rash, Diaphoretic. No: Dry Course - Vital Signs Last Recorded V/S: Last Vital Signs Temp 36.4 C 11/15/20 13:50 Pulse 77 11/15/20 13:50 Resp 18 11/15/20 13:50 BP 146/78 H 11/15/20 13:50 Pulse Ox 93 L 11/15/20 13:50 - Orders/Labs/Meds Orders: Active Orders 24 hr Category Date Time Status Vital Signs [RC] Q15M Care 11/15/20 12:31 Active EPINEPHrine [Adrenalin] Med 11/15/20 12:30 Active 0.3 mg IM ONETIME PRN Famotidine [Pepcid] Med 11/15/20 12:30 Active 20 mg IVPUSH ONETIME PRN Sodium Chloride 0.9% [Normal Saline] 1,000 ml Med 11/15/20 13:00 Active IV ASDIRECTED Sodium Chloride 0.9% [Saline Flush] Med 11/15/20 12:30 Active 10 ml FLUSH ASDIRECTED PRN Sodium Chloride 0.9% [Saline Flush] Med 11/15/20 12:30 Active 30 ml FLUSH ASDIRECTED diphenhydrAMINE [Benadryl] Med 11/15/20 12:30 Active 50 mg IVPUSH ONETIME PRN methylPREDNISolone Sod Succ [Solu-MEDROL] Med 11/15/20 12:30 Active 125 mg IVPUSH ONETIME PRN Saline Lock Insert [OM.PC] Routine Oth 11/15/20 12:30 Ordered Medication Orders Diphenhydramine HCl (Diphenhydramine 50 Mg/Ml Sdv) 50 mg IVPUSH ONETIME PRN PRN Reason: hypersensitivity reaction Epinephrine HCl (Epinephrine 1 Mg/Ml Sdv) 0.3 mg IM ONETIME PRN PRN Reason: hypersensitivity reaction Famotidine (Famotidine 20 Mg/2 Ml Sdv) 20 mg IVPUSH ONETIME PRN PRN Reason: hypersensitivity reaction Sodium Chloride (Normal Saline) 1,000 mls @ 25 mls/hr IV ASDIRECTED [facility] Methylprednisolone Sodium Succinate (Methylprednisolone Sodium Succinate 125 Mg/2 Ml Sdv) 125 mg IVPUSH ONETIME PRN PRN Reason: hypersensitivity reaction Sodium Chloride (Sodium Chloride 0.9% 10 Ml Syringe) 10 ml FLUSH ASDIRECTED PRN PRN Reason: Keep Vein Open Last Admin: 11/15/20 14:40 Dose: 10 ml Documented by: MEGHANA Sodium Chloride (Sodium Chloride 0.9% 10 Ml Syringe) 30 ml FLUSH ASDIRECTED [facility] Labs: Laboratory Tests 11/15/20 11/15/20 11/15/20 Range/Units 12:03 12:03 12:03 WBC 5.4 (4.5-11.0) K/uL RBC 5.07 (4.30-5.90) M/uL Hgb 14.9 (12.0-15.0) g/dL Hct 42.5 (40.0-54.0) % MCV 84 (80-98) fL MCH 29 (27-31) pg MCHC 35 (32-36) % Plt Count 189 (150-400) K/uL Troponin I < 0.017 (0.000-0.056) ng/mL C-Reactive Protein 2.47 H (0.0-0.3) mg/dL SARS CoV-2 RNA Rapid GABRIELA 11/15/20 Range/Units 12:05 WBC (4.5-11.0) K/uL RBC (4.30-5.90) M/uL Hgb (12.0-15.0) g/dL Hct (40.0-54.0) % MCV (80-98) fL MCH (27-31) pg MCHC (32-36) % Plt Count (150-400) K/uL Troponin I (0.000-0.056) ng/mL C-Reactive Protein (0.0-0.3) mg/dL SARS CoV-2 RNA Rapid GABRIELA Positive H Meds: Medications Generic Name Dose Route Start Last Admin Trade Name Freq PRN Reason Stop Dose Admin Diphenhydramine HCl 50 mg 11/15/20 12:30 Diphenhydramine 50 Mg/Ml Sdv IVPUSH ONETIME PRN hypersensitivity reaction Epinephrine HCl 0.3 mg 11/15/20 12:30 Epinephrine 1 Mg/Ml Sdv IM ONETIME PRN hypersensitivity reaction Famotidine 20 mg 11/15/20 12:30 Famotidine 20 Mg/2 Ml Sdv IVPUSH ONETIME PRN hypersensitivity reaction Sodium Chloride 1,000 mls @ 25 mls/hr 11/15/20 13:00 Normal Saline IV ASDIRECTED EDUIN Methylprednisolone Sodium Succinate 125 mg 11/15/20 12:30 Methylprednisolone Sodium Succinate 125 Mg/2 Ml Sdv IVPUSH ONETIME PRN hypersensitivity reaction Sodium Chloride 10 ml 11/15/20 12:30 11/15/20 14:40 Sodium Chloride 0.9% 10 Ml Syringe FLUSH 10 ml ASDIRECTED PRN Administration Keep Vein Open Sodium Chloride 30 ml 11/15/20 12:30 Sodium Chloride 0.9% 10 Ml Syringe FLUSH ASDIRECTED EDUIN Discontinued Medications Generic Name Dose Route Start Last Admin Trade Name Freq PRN Reason Stop Dose Admin CASIRIVIMAB/IMDEVIMAB 10 ml/ 160 mls @ 320 mls/hr 11/15/20 12:30 11/15/20 13:12 Sodium Chloride IV 11/15/20 12:59 320 mls/hr ONETIME ONE Administration - Re-Assessments/Exams Free Text/Narrative Re-Assessment/Exam: 11/15/20 14:20 got IV immunoglobulins today while in the ER. Departure - Departure Time of Disposition: 14:46 Disposition: Home, Self-Care 01 Condition: Fair Clinical Impression: COVID-19 - Discharge Information *PRESCRIPTION DRUG MONITORING PROGRAM REVIEWED*: Not Applicable *COPY OF PRESCRIPTION DRUG MONITORING REPORT IN PATIENT MENDOZA: Not Applicable Instructions: COVID-19 Frequently Asked Questions, Prevent the Spread of COVID- 19 if You Are Sick - [facility] [place] Referrals: Reji Ahmadi MD [Primary Care Provider] - Forms: ED Department Discharge Additional Instructions: Isolate yourself for the next 5-7 days to prevent spread. Take acetaminophen for aches/fever control. Drink enough fluids. Rest. Stay in touch with your provid er. Consider taking zinc 50 mg daily to boost your immune system and vitamin D 2000 IU daily. Sepsis Event Note (ED) - Evaluation Sepsis Screening Result: No Definite Risk - Focused Exam Vital Signs: Vital Signs Temp Pulse Resp BP Pulse Ox 11/15/20 13:50 36.4 C 77 18 146/78 H 93 L 11/15/20 13:48 36.4 C 73 16 146/78 H 93 L 11/15/20 13:39 36.4 C 74 18 152/79 H 94 L 11/15/20 13:30 36.4 C 73 16 148/85 H 94 L 11/15/20 13:16 36.6 C 76 16 132/84 95 11/15/20 11:12 36.4 C 91 20 148/82 H 95 - My Orders Last 24 Hours: My Active Orders 11/15/20 12:30 EPINEPHrine [Adrenalin] 0.3 mg IM ONETIME PRN Famotidine [Pepcid] 20 mg IVPUSH ONETIME PRN Sodium Chloride 0.9% [Saline Flush] 10 ml FLUSH ASDIRECTED PRN Sodium Chloride 0.9% [Saline Flush] 30 ml FLUSH ASDIRECTED diphenhydrAMINE [Benadryl] 50 mg IVPUSH ONETIME PRN methylPREDNISolone Sod Succ [Solu-MEDROL] 125 mg IVPUSH ONETIME PRN Saline Lock Insert [OM.PC] Routine 11/15/20 12:31 Vital Signs [RC] Q15M 11/15/20 13:00 Sodium Chloride 0.9% [Normal Saline] 1,000 ml IV ASDIRECTED - Assessment/Plan Last 24 Hours: My Active Orders 11/15/20 12:30 EPINEPHrine [Adrenalin] 0.3 mg IM ONETIME PRN Famotidine [Pepcid] 20 mg IVPUSH ONETIME PRN Sodium Chloride 0.9% [Saline Flush] 10 ml FLUSH ASDIRECTED PRN Sodium Chloride 0.9% [Saline Flush] 30 ml FLUSH ASDIRECTED diphenhydrAMINE [Benadryl] 50 mg IVPUSH ONETIME PRN methylPREDNISolone Sod Succ [Solu-MEDROL] 125 mg IVPUSH ONETIME PRN Saline Lock Insert [OM.PC] Routine 11/15/20 12:31 Vital Signs [RC] Q15M 11/15/20 13:00 Sodium Chloride 0.9% [Normal Saline] 1,000 ml IV ASDIRECTED
[2020-11-15] MEDS ORDERED: CASIRIVIMAB/IMDEVIMAB 10 ML in Sodium Chloride 0.9% 150 ML IV ONE (12:30)
[2020-11-15] MEDS ORDERED: diphenhydrAMINE 50 MG/ML SDV IVPUSH PRN (12:30)
[2020-11-15] MEDS ORDERED: methylPREDNISolone Sodium Succinate 125 MG/2 ML SDV IVPUSH PRN (12:30)
[2020-11-15] MEDS ORDERED: Famotidine 20 MG/2 ML SDV IVPUSH PRN (12:30)
[2020-11-15] MEDS ORDERED: Sodium Chloride 0.9% 10 ML Syringe FLUSH SCH (12:30)
[2020-11-15] MEDS ORDERED: Sodium Chloride 0.9% 10 ML Syringe FLUSH PRN (12:30)
[2020-11-15] MEDS ORDERED: EPINEPHrine 1 MG/ML SDV IM PRN (12:30)
[2020-11-15] MEDS ORDERED: Sodium Chloride 0.9% 1,000 ML IV SCH (13:00)
[2020-11-15 13:51] VITALS: BP 146/78; PULSE 77
== END 2020-11-15 15:00 | disposition home or self-care (01) ==
LOC: JP.ED 10:39
DX: U07.1 COVID-19 (principal); I25.10 Atherosclerotic heart disease of native coronary artery without angina pectoris; E78.00 Pure hypercholesterolemia, unspecified; I10 Essential (primary) hypertension; I25.2 Old myocardial infarction; E11.9 Type 2 diabetes mellitus without complications; E66.9 Obesity, unspecified; Z68.31 Body mass index [BMI] 31.0-31.9, adult; Z88.5 Allergy status to narcotic agent; Z79.84 Long term (current) use of oral hypoglycemic drugs; Z79.82 Long term (current) use of aspirin; Z79.899 Other long term (current) drug therapy
CPT/HCPCS: 36415; 84484; 85027; 86140; 99284; J7030; M0243; Q0243; U0002

== ENCOUNTER 2021-01-02 10:09 | Day surgery (SDC) | payer MEDICARE, MEDICAID ==
[~2021-01-02 10:09] MED LIST changes: -Bupivacaine 0.5% 30 ML SDV ONE; +Bupivacaine 0.5% 50 ML MDV ONE; -Lactated Ringers 1,000 ML IV SCH; -Midazolam 1 MG/ML 2 ML SDV ONE; -Propofol 200 MG/20 ML SDV ONE; -fentaNYL 100 MCG/2 ML SDV ONE
[2021-01-02] MEDS ORDERED: Lactated Ringers 1,000 ML IV SCH (11:00)
[2021-01-02] MEDS ORDERED: Propofol 200 MG/20 ML SDV ONE (11:20)
[2021-01-02] MEDS ORDERED: Midazolam 1 MG/ML 2 ML SDV ONE (11:20)
[2021-01-02] MEDS ORDERED: fentaNYL 100 MCG/2 ML SDV ONE (11:20)
[2021-01-02] MEDS ORDERED: Vancomycin 1 GM SDV IV SCH (12:00)
[2021-01-02 13:34] VITALS: BP 136/87; PULSE 73
--- NOTE | 2021-01-02 13:41 | OR ---
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 PREOPERATIVE DIAGNOSIS: Nonhealing ulcer, left second toe. POSTOPERATIVE DIAGNOSIS: Nonhealing ulcer, left second toe. PROCEDURE PERFORMED: Amputation of the left second toe. ANESTHESIA: Local with IV sedation. HEMOSTASIS: Obtained with an ankle tourniquet on the left ankle at 250 mmHg. ESTIMATED BLOOD LOSS: 5 mL. MATERIALS: None. INJECTABLES: A total of 10 mL of Marcaine 0.5% plain was injected into the left foot prior to prep. PATHOLOGY: Left second toe sent, and also aerobic and anaerobic cultures were sent. CONDITION: Stable. INDICATIONS FOR SURGERY: Nonhealing ulcer with deformity on left second toe that was unresponsive to conservative measures. DESCRIPTION OF PROCEDURE: The patient was brought to the operating room and placed on the operating table in the supine position. Following IV sedation, anesthesia was obtained with a total of 10 mL of Marcaine 0.5% plain. The left foot was then scrubbed, prepped, and draped in the usual aseptic manner and raised to 60 degrees for hemostasis. Tourniquet was inflated. Foot was lowered onto the table. A skin incision was made in a semi-elliptical incision at the base of the left second toe. Incisions were carried straight down to bone. The extensor and flexor tendons were resected as well as the medial and lateral collateral ligaments of the second metatarsophalangeal joint on the left foot, and also incision was made into the joint capsule of the left second metatarsophalangeal joint to resect the joint capsule from the base of the toe. The left second toe was then removed. The incision was examined to make sure that the tissue was healthy, and it was. So, the incision was flushed out with copious amounts of sterile saline, and then incision was closed with 3-0 Prolene in a simple interrupted configuration and dressed with Xeroform, 4x4s, Kerlix, and Coban. The patient was returned to the recovery room with vital signs stable and vascular status intact to both feet. The patient was given instructions to rest and elevate the left foot. Partial weightbearing on left heel only. The patient will return to clinic for followup with Dr. Wray in one week at which time he will be reevaluated. The patient was told to keep his dressings clean, dry, and intact; finish his antibiotics as directed; and return to clinic in one week at which time he will be reevaluated. The patient was told to go to the emergency room immediately if he has any nausea, vomiting, fever, chills, chest pain, calf pain, or difficulty breathing. The patient was told to ambulate with walker. Alphonse Wray DPM /[id number]
== END 2021-01-02 13:05 | disposition home or self-care (01) ==
LOC: JP.SDS 10:09
PROVIDERS: ATTEND Podiatrist Foot & Ankle Surgery
DX: E11.621 Type 2 diabetes mellitus with foot ulcer (principal); L97.529 Non-pressure chronic ulcer of other part of left foot with unspecified severity; E11.42 Type 2 diabetes mellitus with diabetic polyneuropathy; E11.51 Type 2 diabetes mellitus with diabetic peripheral angiopathy without gangrene; I10 Essential (primary) hypertension; I25.10 Atherosclerotic heart disease of native coronary artery without angina pectoris; E78.5 Hyperlipidemia, unspecified; I25.2 Old myocardial infarction; Z98.890 Other specified postprocedural states; Z79.899 Other long term (current) drug therapy; Z79.82 Long term (current) use of aspirin; Z79.84 Long term (current) use of oral hypoglycemic drugs; Z88.5 Allergy status to narcotic agent
CPT/HCPCS: 28820; 87070; 87075; 87205; J2250; J2704; J3010; J3370; J3490; J7050; J7120; 87077; 87186